=== PATIENT | male | born 1935 | race Caucasian/White ===

== ENCOUNTER 2016-06-17 12:04 | Emergency (ER) | payer MEDICARE, OTHER ==
[~2016-06-17] VITALS: Ht 167.6 cm; Wt 54.2 kg
[~2016-06-17 12:04] MED LIST: DILA8TAB4 PO; HYDR-2768 PO; HYDR-3533 PO; HYDR10SO PO; PAXI20TA26 PO; PRED50TA PO; SIMV20 PO; SYNT25TA PO
[2016-06-17 12:06] VITALS: BP 91/68; PULSE 77; RESP 16; TEMP 98; O2SAT 98
[2016-06-17 12:26] VITALS: BP 97/44; PULSE 81; RESP 18; O2SAT 96
--- NOTE | 2016-06-17 12:29 | PD ---
HPI Chief Complaint: Complaint Time Seen by Provider: 12:18 Travel History International Travel<30 days: No Contact w/Intl Traveler<30days: No Traveled to known affect area: No History of Present Illness HPI This patient complains of urinary incontinence. Duration 3 days. Symptoms severity is mild. He has no superior pain or distention. He's been wearing a depends to catch the dribbling urine. He does report history of prostate issues. He does have a urologist Dr. Dsouza. He says he called the office of his urologist yesterday and was told to come to the emergency room. No fever. No alleviating factors. 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) Blood Disorders: No Anxiety: Yes Depression: Yes Heart Rhythm Problems: No Cancer: Yes (PROSTATE) Cardiovascular Problems: Yes High Cholesterol: No Chemotherapy: No Chest Pain: Yes Congestive Heart Failure: No COPD: No Cerebrovascular Accident: No Diabetes: No Diminished Hearing: No Endocrine: Yes Gastrointestinal Disorders: Yes Glaucoma: No Genitourinary: Yes (KIDNEY STONES) Headaches: Yes Hepatitis: No Hiatal Hernia: No Hypertension: Yes Immune Disorder: No Kidney Stones: Yes ( ON CHRONIC PAIN MEDS FOR KIDNEY PAIN) Musculoskeletal: No Neurologic: No Psychiatric: No Reproductive: No Respiratory: No Migraines: No Myocardial Infarction: No Radiation Therapy: Yes Renal Failure: No Seizures: No Sickle Cell Disease: No Sleep Apnea: No Thyroid Disease: Yes (HYPO) Ulcer: No Past Surgical History Abdominal Surgery: Yes (HERNIA REPAIR X 5) AICD: No Appendectomy: Yes Cardiac Surgery: No Cholecystectomy: No Ear Surgery: No Endocrine Surgery: No Eye Surgery: No Genitourinary Surgery: No Gynecologic Surgery: No Insulin Pump: No Joint Replacement: No Oral Surgery: No Pacemaker: No Thoracic Surgery: No Other Surgery: Yes (APPENDECTOMY) Social History Alcohol Use: No Tobacco Use: Yes (1/2 PPD-1 PPD CIGARETTES) Substance Use: No Allergies-Medications (Allergen,Severity, Reaction): Coded Allergies: No Known Allergies (Verified , 06/17/16) Reported Meds & Prescriptions Reported Meds & Active Scripts Active Cipro (Ciprofloxacin HCl) 500 Mg Tab 500 Mg PO BID Reported Hydrochlorothiazide 25 Mg Tab 25 Mg PO BID Zocor (Simvastatin) 40 Mg Tab 40 Mg PO DAILY Synthroid (Levothyroxine Sodium) 25 Mcg Tab 25 Mcg PO DAILY Review of Systems General / Constitutional: No: Fever Eyes: No: Visual changes HENT: No: Headaches Cardiovascular: No: Chest Pain or Discomfort Respiratory: No: Shortness of Breath Gastrointestinal: No: Abdominal Pain Genitourinary: Positive: Dribbling, Incontinence, No: Dysuria Musculoskeletal: No: Pain Skin: No Rash Neurologic: No: Weakness Psychiatric: No: Depression Endocrine: No: Polydipsia Hematologic/Lymphatic: No: Easy Bruising Physical Exam Narrative GENERAL: Well-nourished, well-developed patient in no apparent distress. SKIN: Focused skin assessment reveals no rash and nodules. Skin is Warm and dry. HEAD: Atraumatic. Normocephalic. EYES: Pupils equal and round. No scleral icterus. No injection or drainage. ENT: No nasal bleeding or discharge. Mucous membranes pink and moist. NECK: Trachea midline. No JVD. CARDIOVASCULAR: Regular rate and rhythm. No murmur appreciated. RESPIRATORY: No accessory muscle use. Clear to auscultation. Breath sounds equal bilaterally. GASTROINTESTINAL: Abdomen soft, non-tender, nondistended. Hepatic and splenic margins not palpable. No suprapubic tenderness or distention MUSCULOSKELETAL: No obvious deformities. No clubbing. No cyanosis. No edema. NEUROLOGICAL: Awake and alert. No obvious cranial nerve deficits. Motor grossly within normal limits. Normal speech. PSYCHIATRIC: Appropriate mood and affect; insight and judgment normal. Data Data Last Documented VS Vital Signs Date Time Temp Pulse Resp B/P Pulse Ox O2 Delivery O2 Flow Rate FiO2 06/17/16 12:26 81 18 97/44 96 Room Air 06/17/16 12:06 98.0 Orders Urinalysis - C+S If Indicated (06/17/16 12:26) Urine Culture (06/17/16 12:50) Labs Laboratory Tests Test 06/17/16 12:50 Urine Collection Type CLEAN CATCH Urine Color DARK-YELLOW Urine Turbidity CLOUDY Urine pH 5.5 Urine Specific [place] 1.020 Urine Protein 300 OR GREATER mg/dL Urine Glucose (UA) NEG mg/dL Urine Ketones TRACE mg/dL Urine Occult Blood LARGE Urine Nitrite POS Urine Bilirubin NEG Urine Leukocyte Esterase MOD Urine RBC 0-3 /hpf Urine WBC 100-200 /hpf Urine WBC Clumps MOD Urine Bacteria MOD /hpf Microscopic Urinalysis Comment CULTURE INDICATED MDM Medical Decision Making Medical Screen Exam Complete: Yes Emergency Medical Condition: Yes Medical Record Reviewed: Yes Differential Diagnosis Incontinence, neurogenic bladder, urethral stricture, BPH Narrative Course I have reviewed the patient's electronic medical record. Urinalysis suggestive of infection. UTI could cause incontinence symptoms. Cipro prescribed for 5 days Patient's exam is normal Blood pressure on the low side but stable He says he frequently has low blood pressures and his blood pressure medication was stopped He should follow with his urologist Diagnosis Primary Impression: Cystitis Additional Impression: Urinary incontinence Qualified Code: R32 - Urinary incontinence, unspecified type Departure Forms: Tests/Procedures Additional Instructions: Follow-up with your Urologist Med/Other Pt SpecificInfo: Prescription(s) given Scripts Ciprofloxacin (Cipro)500 Mg [id number] Mg PO BID #10 TAB Ref 0 Prov:Jatinder Montes De Oca MD 06/17/16 Disposition: 01 DISCHARGE HOME Condition: Stable Jatinder Montes De Oca MD June 17, 2016 12:28
[2016-06-17] MEDS ORDERED: ZOCO40TA PO (12:32)
[2016-06-17] MEDS ORDERED: SYNT25TA PO (12:32)
[2016-06-17] MEDS ORDERED: HYDR25TA5 PO (12:32)
[2016-06-17 13:07] LABS: BLOOD, URINE LARGE (NEG); GLUCOSE,URINE NEG (NEG); KETONE, URINE TRACE mg/dL (NEG); PH, URINE 5.5 (5.0-8.5)
[2016-06-17 13:11] LABS: NITRITE,URINE POS (NEG)
[2016-06-17 13:12] LABS: BACTERIA, URINE MOD /hpf; COMMENT (UR) CULTURE INDICATED; CULTURE IF INDICATED CULTURE INDICATED; METHOD OF COLLECTION CLEAN CATCH; RBC, URINE 0-3 /hpf (0-3); URINE COLOR DARK-YELLOW (YELLW/STRAW); WBC, URINE 100-200 /hpf (0-5)
[2016-06-17] MEDS ORDERED: CIPR-9 PO (13:33)
[2016-06-17 14:19] VITALS: BP 100/77
== END 2016-06-17 14:20 | disposition home or self-care (01) ==
LOC: PHED 12:04
DX: N30.90 Cystitis, unspecified without hematuria (principal); B96.20 Unspecified Escherichia coli [E. coli] as the cause of diseases classified elsewhere; R32 Unspecified urinary incontinence; I10 Essential (primary) hypertension; E03.9 Hypothyroidism, unspecified; Z87.442 Personal history of urinary calculi
CPT/HCPCS: 81001; 87077; 87086; 87186; 99283

== ENCOUNTER 2016-12-27 11:26 | Inpatient (IN) | payer MEDICARE, OTHER ==
[~2016-12-27] VITALS: Ht 167.6 cm; Wt 52.5 kg
[~2016-12-27 11:26] MED LIST changes: +CIPR-9 PO; -DILA8TAB4 PO; -HYDR-2768 PO; -HYDR-3533 PO; -HYDR10SO PO; +HYDR25TA5 PO; -PAXI20TA26 PO; -PRED50TA PO; -SIMV20 PO; +ZOCO40TA PO
[2016-12-27 11:31] VITALS: BP 121/56; PULSE 98; RESP 16; TEMP 98.1; O2SAT 97
--- NOTE | 2016-12-27 12:18 | PD ---
HPI Chief Complaint: Complaint Time Seen by Provider: 11:47 Travel History International Travel<30 days: No Contact w/Intl Traveler<30days: No Traveled to known affect area: No History of Present Illness HPI 81-year-old male presents with difficulty urinating where he can only get out a small amount and feels like he has to urinate all the time. He states he has past for kidney stones over the past couple of days. He states that he takes hydrocodone at home for the pain. He denies any other complaints but is a poor historian. His friend who is with him help supplement history some. He denies other complaints. 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) Blood Disorders: No Anxiety: Yes Depression: Yes Heart Rhythm Problems: No Cancer: Yes (PROSTATE) Cardiovascular Problems: Yes High Cholesterol: No Chemotherapy: No Chest Pain: Yes Congestive Heart Failure: No COPD: No Cerebrovascular Accident: No Diabetes: No Diminished Hearing: No Endocrine: Yes Gastrointestinal Disorders: Yes Glaucoma: No Genitourinary: Yes (KIDNEY STONES) Headaches: Yes Hepatitis: No Hiatal Hernia: No Hypertension: Yes Immune Disorder: No Kidney Stones: Yes ( ON CHRONIC PAIN MEDS FOR KIDNEY PAIN) Musculoskeletal: No Neurologic: No Psychiatric: No Reproductive: No Respiratory: No Migraines: No Myocardial Infarction: No Radiation Therapy: Yes Renal Failure: No Seizures: No Sickle Cell Disease: No Sleep Apnea: No Thyroid Disease: Yes Ulcer: No Influenza Vaccination: Yes Past Surgical History Abdominal Surgery: Yes (HERNIA REPAIR X 5) AICD: No Appendectomy: Yes Cardiac Surgery: No Cholecystectomy: No Ear Surgery: No Endocrine Surgery: No Eye Surgery: No Genitourinary Surgery: No Gynecologic Surgery: No Insulin Pump: No Joint Replacement: No Oral Surgery: No Pacemaker: No Thoracic Surgery: No Other Surgery: Yes (APPENDECTOMY) Social History Alcohol Use: No Tobacco Use: Yes (1/2 PPD-1 PPD CIGARETTES) Substance Use: No Allergies-Medications (Allergen,Severity, Reaction): Coded Allergies: No Known Allergies (Verified Adverse Reaction, Unknown, 12/27/16) Reported Meds & Prescriptions Reported Meds & Active Scripts Active Reported [bp med] 1 Tab PO DAILY Hydrocodone-Acetaminophen 5-300 Mg Tab 1 Tab PO Q4H PRN Bupropion HCl ER 24 HR (Bupropion HCl) 150 Mg Tab 450 Mg PO DAILY Hydrochlorothiazide 25 Mg Tab 25 Mg PO BID Zocor (Simvastatin) 40 Mg Tab 40 Mg PO DAILY Synthroid (Levothyroxine Sodium) 25 Mcg Tab 25 Mcg PO DAILY Review of Systems Except as stated in HPI: all other systems reviewed are Neg Physical Exam Narrative GENERAL: Well-nourished, well-developed patient. SKIN: Warm and dry. HEAD: Normocephalic and atraumatic. EYES: No injection or drainage. ENT: No nasal drainage noted. NECK: Supple, trachea midline. CARDIOVASCULAR: Regular rate and rhythm RESPIRATORY: No increased effort. No accessory muscle use. GASTROINTESTINAL: Abdomen soft, non-tender, nondistended. EXTREMITIES: No edema. BACK: Nontender without obvious deformity. NEUROLOGICAL: Awake. Moves extremities. Normal speech. Data Data Last Documented VS Vital Signs Date Time Temp Pulse Resp B/P (MAP) Pulse Ox O2 Delivery O2 Flow Rate FiO2 12/27/16 11:31 98.1 98 16 121/56 (77) 97 Orders Orders Urinalysis - C+S If Indicated (12/27/16 11:36) Complete Blood Count With Diff (12/27/16 11:58) Basic Metabolic Panel (Bmp) (12/27/16 11:58) Ct Abd/Pel W/O Iv Contrast (12/27/16 ) Iv Access Insert/Monitor (12/27/16 11:58) Urine Culture (12/27/16 12:10) Consult Urology (12/27/16 ) Ceftriaxone Inj (Rocephin Inj) (12/27/16 13:30) Labs Laboratory Tests Test 12/27/16 12:10 White Blood Count 5.4 TH/MM3 Red Blood Count 3.52 MIL/MM3 Hemoglobin 9.7 GM/DL Hematocrit 30.4 % Mean Corpuscular Volume 86.5 FL Mean Corpuscular Hemoglobin 27.5 PG Mean Corpuscular Hemoglobin Concent 31.8 % Red Cell Distribution Width 15.6 % Platelet Count 324 TH/MM3 Mean Platelet Volume 6.3 FL Neutrophils (%) (Auto) 65.1 % Lymphocytes (%) (Auto) 23.8 % Monocytes (%) (Auto) 9.3 % Eosinophils (%) (Auto) 1.4 % Basophils (%) (Auto) 0.4 % Neutrophils # (Auto) 3.5 TH/MM3 Lymphocytes # (Auto) 1.3 TH/MM3 Monocytes # (Auto) 0.5 TH/MM3 Eosinophils # (Auto) 0.1 TH/MM3 Basophils # (Auto) 0.0 TH/MM3 CBC Comment DIFF FINAL Differential Comment Urine Collection Type CLEAN CATCH Urine Color YELLOW Urine Turbidity SLIGHT Urine pH 6.0 Urine Specific [place] 1.018 Urine Protein 30 mg/dL Urine Glucose (UA) NEG mg/dL Urine Ketones NEG mg/dL Urine Occult Blood LARGE Urine Nitrite NEG Urine Bilirubin NEG Urine Leukocyte Esterase SMALL Urine RBC INNUM /hpf Urine WBC 20-24 /hpf Urine Squamous Epithelial Cells 0-5 /hpf Microscopic Urinalysis Comment CULTURE INDICATED Urine Collection Time 12:10 Blood Urea Nitrogen 25 MG/DL Creatinine 1.50 MG/DL Random Glucose 102 MG/DL Calcium Level 9.0 MG/DL Sodium Level 136 MEQ/L Potassium Level 3.8 MEQ/L Chloride Level 99 MEQ/L Carbon Dioxide Level 30.7 MEQ/L Anion Gap 6 MEQ/L Estimat Glomerular Filtration Rate 45 ML/MIN MDM Medical Decision Making Medical Screen Exam Complete: Yes Emergency Medical Condition: Yes Medical Record Reviewed: Yes (past history confirmed) Interpretation(s) CBC & BMP Diagram 12/27/16 12:10 Calcium Level 9.0 Last 24 hours Impressions Abdomen/Pelvis CT 12/27/16 0000 Signed Impressions: Service Date/Time: Thursday, December 27, 2016 12:33 - CONCLUSION: 1. Bilateral nephrolithiasis. 2. Moderate left hydronephrosis 3. Multiple calculi in the distal left ureter 4. Retroperitoneal lymphadenopathy characteristic of malignant lymphadenopathy from prostate carcinoma. 5. Bilateral renal cysts. 6. Infrarenal abdominal aortic aneurysm 7. Prostatomegaly with calcium deposits in the transition zone. 8. Sclerotic and lytic bone lesions characteristic of metastatic prostate carcinoma. Serg Carrillo MD Differential Diagnosis UTI, stone, BPH Narrative Course Will check blood work, urinalysis, CT scan abdominal pelvis and reevaluate ED workup shows multiple distal left calculi with renal insufficiency and anemia. Workup also notes metastatic prostate cancer. Patient states that he knows that he has metastatic prostate cancer and he is not wanting treatment for this. In terms of finding of aortic aneurysm patient states he is not aware of this but does not want evaluation for any surgery for that likely. He does agree to discussion with urologist and admission here if needed Patient updated and agrees to admission here, given Rocephin, denies bleeding Physician Communication Physician Communication dr medrano states can eat and stay here in [place] agrees to admit and requests flomax Diagnosis Primary Impression: Calculus of distal left ureter Additional Impressions: Anemia Qualified Codes: D64.9 - Anemia, unspecified Renal insufficiency Aortic aneurysm Prostate cancer metastatic to bone Admitting Information Admitting Physician Requests: Admit Slime Jacobson MD Dec 27, 2016 12:18
[2016-12-27 12:19] LABS: AUTOMATED NEUTROPHIL # 3.5 TH/MM3 (1.8-7.7); BASOPHIL % 0.4 % (0.0-2.0); BLOOD, URINE LARGE (NEG); EOSINOPHIL # 0.1 TH/MM3 (0-0.4); EOSINOPHIL % 1.4 % (0.0-4.0); GLUCOSE,URINE NEG (NEG); HEMATOCRIT 30.4 % (39.0-51.0); HEMO FLAGS DIFF FINAL; KETONE, URINE NEG (NEG); LYMPH % 23.8 % (9.0-44.0); LYMPHOCYTE # 1.3 TH/MM3 (1.0-4.8); MEAN CELL VOLUME 86.5 FL (80.0-100.0); MEAN CORPUSCULAR HEMOGLOBIN 27.5 PG (27.0-34.0); MEAN CORPUSCULAR HGB CONC 31.8 % (32.0-36.0); MONO % 9.3 % (0.0-8.0); NEUT % 65.1 % (16.0-70.0); NITRITE,URINE NEG (NEG); PLATELET COUNT 324 TH/MM3 (150-450); RED BLOOD COUNT 3.52 MIL/MM3 (4.50-5.90); RED CELL DISTRIBUTION WIDTH 15.6 % (11.6-17.2); WHITE BLOOD COUNT 5.4 TH/MM3 (4.0-11.0)
[2016-12-27 12:27] LABS: METHOD OF COLLECTION CLEAN CATCH; POTASSIUM 3.8 MEQ/L (3.5-5.1); RBC, URINE INNUM /hpf (0-3); URINE COLOR YELLOW (YELLW/STRAW)
[2016-12-27 12:28] LABS: COMMENT (UR) CULTURE INDICATED; CULTURE IF INDICATED CULTURE INDICATED; SQUAMOUS EPITHELIAL CELL URINE 0-5 /hpf (0-5)
[2016-12-27 12:29] LABS: BICARBONATE 30.7 MEQ/L (21.0-32.0)
[2016-12-27] MEDS ORDERED: HYDR-4107 PO (12:35)
[2016-12-27] MEDS ORDERED: BUPR150T3 PO (12:35)
[2016-12-27] MEDS ORDERED: bp med PO (12:36)
--- NOTE | 2016-12-27 13:02 | RADRPT ---
EXAM DATE/TIME: 12/27/2016 12:33 [facility] COMPARISON: No previous studies available for comparison. INDICATIONS : Bladder pain, pressure, burning, difficulty urinating. ORAL CONTRAST: No oral contrast ingested. RADIATION DOSE: 4.92 CTDIvol (mGy) MEDICAL HISTORY : Cardiovascular disease. Renal calculi. Carcinoma, prostate.Black outs, SOB. SURGICAL HISTORY : Knee, Hernia x 5 ENCOUNTER: Initial ACUITY: 4 - 6 days PAIN SCALE: 10/10 LOCATION: pelvis TECHNIQUE: Volumetric scanning of the abdomen and pelvis was performed. Using automated exposure control and ad justment of the mA and/or kV according to patient size, radiation dose was kept as low as reasonably achievable to obtain optimal diagnostic quality images. DICOM format image data is available electro nically for review and comparison. FINDINGS: LOWER LUNGS: The visualized lower lungs are clear. LIVER: Homogeneous density without lesion. There is no dilation of the biliary tree. No calcified gallston es. SPLEEN: Normal size without lesion. PANCREAS: Within normal limits. KIDNEYS: The left kidney is moderately hydronephrotic. Multiple renal calculi identified ranging in size up to 6 mm. The largest stone is identified in the lower pole of left kidney. Numerous calculi are identif ied in the distal left ureter. The largest measures 6 mm. Large bilobed cyst is identified off the in ferior pole of the left kidney measuring 4.3 cm. There is no evidence of right hydronephrosis. A 5.6 mm calculus is identified in the lower pole of the right kidney. A cluster of 3 large cysts are seen centrally within the right kidney. These ran ge in size up to 3 cm. ADRENAL GLANDS: Within normal limits. VASCULAR: Aneurysmal enlargement is identified of the infrarenal abdominal aorta. There are 2 aneurysmal segmen ts. One just below the renal arteries measuring 3.9 cm and the second just above the bifurcation teddy uring 3.6 cm. 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 BOWEL/MESENTERY: The stomach, small bowel, and colon demonstrate no acute abnormality. There is no free intraperitone al air or fluid. ABDOMINAL WALL: Within normal limits. RETROPERITONEUM: Enlarged retroperitoneal lymph nodes are identified. A ranging in size up to 2.5 cm. BLADDER: A large calculus is identified along the posterior bladder wall at the level of the prostate. This ma y represent calcification within a BPH nodule. REPRODUCTIVE: Within normal limits. INGUINAL: There is no lymphadenopathy or hernia. MUSCULOSKELETAL: Radiolucent and sclerotic lesions are identified throughout the pelvis. CONCLUSION: 1. Bilateral nephrolithiasis. 2. Moderate left hydronephrosis 3. Multiple calculi in the distal left ureter 4. Retroperitoneal lymphadenopathy characteristic of malignant lymphadenopathy from prostate carcinom a. 5. Bilateral renal cysts. 6. Infrarenal abdominal aortic aneurysm 7. Prostatomegaly with calcium deposits in the transition zone. 8. Sclerotic and lytic bone lesions characteristic of metastatic prostate carcinoma. Serg Carrillo MD on December 27, 2016 at 12:48 Board Certified Radiologist. This report was verified electronically.
[2016-12-27 13:10] VITALS: BP 119/72; PULSE 79; RESP 18; O2SAT 96
[2016-12-27] MEDS ORDERED: cefTRIAXone INJ 1,000 MG in SODIUM CHLORIDE 0.9% INJ 100 ML IV ONE (13:30)
[2016-12-27] MEDS ORDERED: SODIUM CHLOR 0.9% 1000 ML INJ 1,000 ML IV ONE (14:00)
[2016-12-27] MEDS ORDERED: TAMSULOSIN HCL 0.4 MG CAP PO ONE ×2 (14:15→15:30)
[2016-12-27 14:49] VITALS: BP 117/71
[2016-12-27 15:00] VITALS: BP 126/60; PULSE 78; RESP 18; TEMP 97.4; O2SAT 96
[2016-12-27] MEDS ORDERED: buPROPion HCL 150 MG EXTENDED RELEASE TAB PO SCH (16:00)
--- NOTE | 2016-12-27 16:24 | HHI.HP ---
[facility] Ad[facility] Diagnosis distal left ureteral calculi, renal insufficiency, anemia Diagnoses: Chief Complaint: Difficulty urinating, abdominal pain Travel History International Travel<30 Days: No Contact w/Intl Traveler <30 Da: No Traveled to Known Affected Are: No History of Present Illness 81-year-old white male being admitted for hydronephrosis and urinary retention. Patient was in his usual state of health until about 2 days ago when he began experiencing suprapubic pain and difficulty urinating. He is a very difficult historian, eventually says he does not remember seeing gross blood in his urine. His friend says that he passed 2 kidney stones in the last few days and then began experiencing his current pain symptoms. Denies any dysuria. Denies any nausea vomiting or diarrhea. States that he has a urologist and he was recommended to see oncology and undergo chemotherapy by the MD for his prostate cancer but he declined that treatment option. Review of Systems Except as stated in HPI: all other systems reviewed are Neg Past Family Social History Past Medical History Obtained via chart, prostate cancer, nephrolithiasis, depression Past Surgical History Abdominal hernia repair, appendectomy Allergies: Coded Allergies: No Known Allergies (Verified Allergy, Unknown, 12/27/16) Family History Denies any family illnesses Social History Smoker half pack to 1 pack per day Physical Exam Vital Signs Vital Signs Date Time Temp Pulse Resp B/P (MAP) Pulse Ox O2 Delivery O2 Flow Rate FiO2 12/27/16 15:00 97.4 78 18 126/60 (82) 96 12/27/16 14:49 18 85 117/71 (86) 12/27/16 11:31 98.1 98 16 121/56 (77) 97 Physical Exam VS: Afebrile GENERAL: Elderly white male, sitting up in bed, no acute distress SKIN: Warm and dry. EYES: No scleral icterus. No injection or drainage. ENT: No nasal bleeding or discharge. Mucous membranes pink and moist. CARDIOVASCULAR: Regular rate and rhythm. no murmurs RESPIRATORY: No accessory muscle use. Clear to auscultation. Breath sounds equal bilaterally. GASTROINTESTINAL: Abdomen soft, non-tender, nondistended. Hepatic and splenic margins not palpable. Extremities: No clubbing, cyanosis, or edema. No obvious deformities. Genitourinary: Has a palpable left-sided inguinal lymph node, nontender testicles, circum sized penis - no erythema or edema noted over entire groin. Has left flank tenderness to palpation, none on the right. MUSCULOSKELETAL: Extremities without clubbing, cyanosis, or edema. No obvious deformities. grossly intact ROM with 5/5 strength in upper and lower extremities proximally NEUROLOGICAL: Awake and alert. No obvious cranial nerve deficits. No facial droop nor slurred speech noted. PSYCHIATRIC: Appropriate mood and affect; insight and judgment normal. Laboratory Laboratory Tests Test 12/27/16 12:10 White Blood Count 5.4 Red Blood Count 3.52 Hemoglobin 9.7 Hematocrit 30.4 Mean Corpuscular Volume 86.5 Mean Corpuscular Hemoglobin 27.5 Mean Corpuscular Hemoglobin Concent 31.8 Red Cell Distribution Width 15.6 Platelet Count 324 Mean Platelet Volume 6.3 Neutrophils (%) (Auto) 65.1 Lymphocytes (%) (Auto) 23.8 Monocytes (%) (Auto) 9.3 Eosinophils (%) (Auto) 1.4 Basophils (%) (Auto) 0.4 Neutrophils # (Auto) 3.5 Lymphocytes # (Auto) 1.3 Monocytes # (Auto) 0.5 Eosinophils # (Auto) 0.1 Basophils # (Auto) 0.0 CBC Comment DIFF FINAL Differential Comment Urine Collection Type CLEAN CATCH Urine Color YELLOW Urine Turbidity SLIGHT Urine pH 6.0 Urine Specific [place] 1.018 Urine Protein 30 Urine Glucose (UA) NEG Urine Ketones NEG Urine Occult Blood LARGE Urine Nitrite NEG Urine Bilirubin NEG Urine Leukocyte Esterase SMALL Urine RBC INNUM Urine WBC 20-24 Urine Squamous Epithelial Cells 0-5 Microscopic Urinalysis Comment CULTURE INDICATED Urine Collection Time 12:10 Blood Urea Nitrogen 25 Creatinine 1.50 Random Glucose 102 Calcium Level 9.0 Sodium Level 136 Potassium Level 3.8 Chloride Level 99 Carbon Dioxide Level 30.7 Anion Gap 6 Estimat Glomerular Filtration Rate 45 Date/Time Source Procedure Growth Status 12/27/16 12:10 Urine Clean Catch Urine Culture Pending Received Result Diagram: 12/27/16 1210 12/27/16 1210 Caprini VTE Risk Assessment Caprini VTE Risk Assessment: Mod/High Risk (score >= 2) Caprini Risk Assessment Model Point Value = 1 Point Value = 2 Point Value = 3 Point Value = 5 Age 41-60 Minor surgery BMI > 25 kg/m2 Swollen legs Varicose veins or History of unexplained or recurrent spontaneous Oral contraceptives or hormone replacement Sepsis (< 1 month) Serious lung disease, including pneumonia (< 1 month) Abnormal pulmonary function Acute myocardial infarction Congestive heart failure (< 1 month) History of inflammatory bowel disease Medical patient at bed rest Age 61-74 Arthroscopic surgery Major open surgery (> 45 min) Laparoscopic surgery (> 45 min) Malignancy Confined to bed (> 72 hours) Immobilizing plaster cast Central venous access Age >= 75 History of VTE Family history of VTE Factor V Leiden Prothrombin [id number] Lupus anticoagulant Anticardiolipin antibodies Elevated serum homocysteine Heparin-induced thrombocytopenia Other congenital or acquired thrombophilia Stroke (< 1 month) Elective arthroplasty Hip, pelvis, or leg fracture Acute spinal cord injury (< 1 month) Prophylaxis Regimen Total Risk Factor Score Risk Level Prophylaxis Regimen 0-1 Low Early ambulation 2 Moderate Order ONE of the following: *Sequential Compression Device (SCD) *Heparin 5000 units SQ BID 3-4 Higher Order ONE of the following medications: *Heparin 5000 units SQ TID *Enoxaparin/Lovenox 40 mg SQ daily (WT < 150 kg, CrCl > 30 mL/min) *Enoxaparin/Lovenox 30 mg SQ daily (WT < 150 kg, CrCl > 10-29 mL/min) *Enoxaparin/Lovenox 30 mg SQ BID (WT < 150 kg, CrCl > 30 mL/min) AND/OR *Sequential Compression Device (SCD) 5 or more Highest Order ONE of the following medications: *Heparin 5000 units SQ TID (Preferred with Epidurals) *Enoxaparin/Lovenox 40 mg SQ daily (WT < 150 kg, CrCl > 30 mL/min) *Enoxaparin/Lovenox 30 mg SQ daily (WT < 150 kg, CrCl > 10-29 mL/min) *Enoxaparin/Lovenox 30 mg SQ BID (WT < 150 kg, CrCl > 30 mL/min) AND *Sequential Compression Device (SCD) Assessment and Plan Assessment and Plan abdominal pain - Likely multifactorial, independent reviewed the CT scan shows substantial constipation diffusely along with substantial aortic calcifications. - Radiology read shows infrarenal abdominal aortic aneurysm along with kidney stones, largest on the left at most measuring 6 mm - home hydrocodone and Toradol, - see tx as below Left-sided hydronephrosis + nephrolithiasis - Likely secondary to nephrolithiasis, largest on the left at most measuring 6 mm, ED MD relayed that urology fundraising consultant does not feel the need for stenting at this time. - IV Hydration - Strict intake and output - Glycerin suppository x1, scheduled MiraLAX, Colace Prostate carcinoma w/ presumed mets - pt not desiring further input from heme/onc at this time despite being counseled on risks and benefits Urinary straining - Avoid anticholinergics, strict intake output - Likely secondary to BPH with prostate cancer, starting max dose Flomax - Can perform and out catheterizations if starts presenting with absolute urinary retention - Continue Rocephin until urine culture proves there is no UTI DAWN - Likely secondary to decreased appetite secondary to pain - IV hydration HYL, hypothyroidism, depression - continue home simvastatin, bupriopion, and synthroid Lovenox for DVT prevention Plan briefly discussed w/ nurse. Physician Certification 2 Midnight Certification Type: Admission for Inpatient Services Order for Inpatient Services The services are ordered in accordance with Medicare regulations or non- Medicare payer requirements, as applicable. In the case of services not specified as inpatient-only, they are appropriately provided as inpatient services in accordance with the 2-midnight benchmark. Estimated LOS (days): 2 2 days is the estimated time the patient will need to remain in the hospital, assuming treatment plan goals are met and no additional complications. Post-Hospital Plan: Home Isaiah Soto MD Dec 27, 2016 16:24
[2016-12-27] MEDS: LEVOTHYROXINE SODIUM 25 MCG TAB PO SCH (16:42)
[2016-12-27] MEDS: PRAVASTATIN SOD 80 MG TAB PO SCH (16:42)
[2016-12-27] MEDS ORDERED: KETOROLAC TROMETHAMINE 30 MG/ML (IVP) VIAL IV PUSH PRN (16:45)
[2016-12-27] MEDS ORDERED: ACETAMINOPHEN 500 MG CPLT PO PRN (16:45)
[2016-12-27] MEDS: SODIUM CHLOR 0.9% 1000 ML INJ 1,000 ML IV SCH (16:50)
[2016-12-27] MEDS ORDERED: ACETAMINOPHEN/HYDROcodone 325 MG/5 MG TAB PO PRN (17:00)
[2016-12-27] MEDS ORDERED: ENOXAPARIN SODIUM 30 MG/0.3 ML SYRINGE SQ SCH (18:00)
[2016-12-27 20:00] VITALS: BP 88/56; PULSE 90; RESP 18; TEMP 99.1; O2SAT 98
[2016-12-27] MEDS: buPROPion HCL 100 MG SUSTAINED RELEASE TAB PO SCH (21:07)
[2016-12-27] MEDS ORDERED: TEMAZEPAM 7.5 MG CAP PO ONE (23:30)
[2016-12-28] VITALS: BP 112/58; PULSE 70; RESP 16; TEMP 98.1; O2SAT 99
[2016-12-28] MEDS: SODIUM CHLOR 0.9% 1000 ML INJ 1,000 ML IV SCH ×2 (03:15→15:29)
[2016-12-28] MEDS: LEVOTHYROXINE SODIUM 25 MCG TAB PO SCH (04:49)
[2016-12-28 07:21] LABS: POTASSIUM 3.5 MEQ/L (3.5-5.1)
[2016-12-28 07:27] LABS: BICARBONATE 27.1 MEQ/L (21.0-32.0)
[2016-12-28 08:00] VITALS: BP 136/63; PULSE 80; RESP 14; TEMP 96.5; O2SAT 97
[2016-12-28] MEDS: PRAVASTATIN SOD 80 MG TAB PO SCH (08:19)
[2016-12-28] MEDS: buPROPion HCL 100 MG SUSTAINED RELEASE TAB PO SCH (08:19)
[2016-12-28] MEDS ORDERED: TAMSULOSIN HCL 0.4 MG CAP PO SCH (09:00)
[2016-12-28] MEDS ORDERED: cefTRIAXone INJ 1,000 MG in SODIUM CHLORIDE 0.9% INJ 100 ML IV SCH (10:00)
--- NOTE | 2016-12-28 11:24 | RADRPT ---
EXAM DATE/TIME: 12/28/2016 10:54 [place] COMPARISON: CT ABDOMEN & PELVIS W/O CONTRAST, December 27, 2016, 12:33. INDICATIONS : Bilateral flank pain MEDICAL HISTORY : Carcinoma, prostatic. Renal calculi. Cardiovascular disease. SURGICAL HISTORY : Hernia, knee ENCOUNTER: Subsequent ACUITY: 2 weeks PAIN SCORE: 6/10 LOCATION: Bilateral lower quadrant bilateral flank pain FINDINGS: Supine view of the abdomen was performed. The abdominal bowel gas pattern is unremarkable. There is no evidence of ileus, free air or mass effect. Distal left ureteral calcifications are faintly visual ized. No abnormal masses, or organomegaly is seen. No sclerotic lesions are inconspicuous. CONCLUSION: 1. Faintly visualized a distal left ureteral calcifications. 2. No evidence of ileus, mass effect or free air. Serg Carrillo MD on December 28, 2016 at 11:19 Board Certified Radiologist. This report was verified electronically.
[2016-12-28 12:00] VITALS: BP 107/55; PULSE 83; RESP 16; TEMP 97.8; O2SAT 100
--- NOTE | 2016-12-28 14:36 | MB ---
cc: SILVANA HATCH MD DATE OF CONSULTATION: 12/28/2016. REASON FOR CONSULTATION: 1. Left ureteral calculi. 2. History of metastatic prostate cancer. HISTORY OF PRESENT ILLNESS: This patient is an 81-year-old male with a history of prostate cancer status post external beam radiation therapy with metastatic disease, longstanding history of kidney stones who presented yesterday to the emergency room with a two day history of lower abdominal pain and pain with urination. The patient states he has been dealing with kidney stones since the 's for which he has had multiple lithotripsies in the past. He states he has passed four kidney stones over the past week. Yesterday he did not feel like he was emptying his bladder well. He denies fever or chills, nausea or vomiting or flank pain. He is under the care of a urologist at the [facility] who recommended going to see oncology for possible chemotherapy for his metastatic prostate cancer but he declined this treatment option. He denies any unexplained weight loss or any new or unusual bone or back pain. He denies bowel incontinence however he does have trouble controlling his urine and often cannot without leaking. REVIEW OF SYSTEMS: See the history of present illness, otherwise all systems reviewed and otherwise negative. PAST MEDICAL HISTORY: 1. Nephrolithiasis. 2. Metastatic prostate cancer. 3. Depression. PAST SURGICAL HISTORY: 1. Appendectomy. 2. Abdominal hernia repair. ALLERGIES: NO KNOWN DRUG ALLERGIES. FAMILY HISTORY: He denies urolithiasis. SOCIAL HISTORY: He smokes one pack per day. He denies illicit drugs. Occasional alcohol use. HOME MEDICATIONS: His home medications include: 1. Zocor 40 milligrams p.o. daily. 2. Wellbutrin 450 milligrams p.o. daily. 3. Hydrochlorothiazide 25 milligrams p.o. twice a day. 4. Synthroid 25 milligrams p.o. daily. REVIEW OF SYSTEMS: See the history of present illness, otherwise all systems reviewed and otherwise negative. PHYSICAL EXAMINATION: VITAL SIGNS: Temperature 96.5, pulse 80, respiratory rate 14, blood pressure 136/69, satting 97% on room air. GENERAL: He is alert and oriented times three and in no apparent distress. He is a pleasant and cooperative gentleman who appears older than his stated age. HEAD, EYES, EARS, NOSE, THROAT: Head is normocephalic and atraumatic. Eyes - No scleral icterus. Extraocular muscles intact. NECK: The neck is supple. Trachea is midline. No jugular venous distention. SKIN: No ulcers or rashes seen. Mucosa pink and moist. LUNGS: Nonlabored respirations. No wheezes, rales or rhonchi. HEART: Regular rate and rhythm. No murmurs, rubs or gallops. ABDOMEN: The abdomen is soft, nontender and nondistended. Positive bowel sounds. GENITOURINARY EXAM: His penis is uncircumcised. Testes descended bilaterally of normal size and consistency without masses. RECTAL EXAM: Not indicated at this time. EXTREMITIES: Nontender. No cyanosis, clubbing or edema. PSYCHIATRIC: Flat affect. NEUROLOGIC: Cranial nerves II through XII are intact. Strength 5/5 in all four extremities. LABORATORY STUDIES: White count 5.4, hemoglobin 11.7, hematocrit 30.4, platelet count 324,000. Sodium 139, potassium 3.5, chloride 105, bicarbonate 27.1, BUN 26, creatinine 1..30. Urine shows large blood as well as leukocyte esterase. IMAGING STUDIES: CT of pelvis without contrast images were reviewed and agree with radiologist's report. 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 ASSESSMENT AND PLAN: The patient is an 81-year-old male with metastatic prostate cancer, history of kidney stones who was admitted with lower abdominal pain and difficulty urinating and was found to have multiple left distal ureteral calculi. PLAN: 1. Will go ahead and check a KUB. 2. Will also check a postvoid residual to be certain that he is emptying his bladder well. 3. Recommend conservative management at this time with Flomax and pain medication such as Diclofenac. 4. The patient wants a trial passage of the stones. 5. He can follow up with myself or with the [facility] as an outpatient for treatment of stones and to discuss further options for treatment of his prostate cancer as there other options available besides chemotherapy such as LH/RH agonists and antagonist therapy as well as possible Zytiga if the patient is interested. 6. I would hold off on checking PSA while he is in the hospital and it can be checked as an outpatient. Thank you for this consult. Please call with any questions. MD BARBIE Damon/CARLOS /11:00 AM /2:22 PM
[2016-12-28] MEDS ORDERED: OXYC1CAP PO (16:44)
[2016-12-28] MEDS ORDERED: IBUP-1129 OROPHARYNG (16:44)
[2016-12-28] MEDS ORDERED: TAMS0.4C4 PO (16:44)
[2016-12-28] MEDS ORDERED: CEFD300C PO (16:44)
[2016-12-28] MEDS ORDERED: FINA5TAB2 PO (16:44)
[2016-12-28] MEDS ORDERED: TRAZ50TA12 PO (16:45)
--- NOTE | 2016-12-28 16:45 | HHI.DCPOC ---
Discharge Care Plan Diagnosis: (1) Calculus of distal left ureter (2) Prostate cancer metastatic to bone (3) Renal insufficiency Additional Problems Drink 8-10 glasses of water a day with at least half lemon's worth of lemon juice in your daily water intake. Goals to Promote Your Health * To prevent worsening of your condition and complications * To maintain your health at the optimal level Directions to Meet Your Goals Take your medications as prescribed Follow your dietary instruction Follow activity as directed Keep your appointments as scheduled Take your immunizations and boosters as scheduled If your symptoms worsen call your PCP, if no PCP go to Urgent Care Center or Emergency Room Smoking is Dangerous to Your Health. Avoid second hand smoke Call the 24-hour hour crisis hotline for domestic abuse at Isaiah Soto MD Dec 28, 2016 16:45
--- NOTE | 2016-12-28 16:48 | HHI.PR ---
Subjective Remarks Patient reports mildly improved symptoms, has been able to urinate per nursing with post-residual voids ranging from 60 to 70s. Not requiring catheterizations. Patient tolerating by mouth intake and no IV narcotics. Objective Vital Signs Date Time Temp Pulse Resp B/P (MAP) Pulse Ox O2 Delivery O2 Flow Rate FiO2 12/28/16 12:00 97.8 83 16 107/55 (72) 100 12/28/16 08:00 96.5 80 14 136/63 (87) 97 12/28/16 00:00 98.1 70 16 112/58 (76) 99 12/27/16 20:00 99.1 90 18 88/56 (67) 98 12/27/16 18:15 15 I/O 12/27/16 12/27/16 12/27/16 12/28/16 12/28/16 12/28/16 07:00 15:00 23:00 07:00 15:00 23:00 Intake Total 100 ml 1240 ml 1480 ml 444 ml Output Total 50 ml 100 ml 200 ml 200 ml 50 ml Balance 50 ml 1140 ml 1280 ml 244 ml -50 ml Intake Oral 240 ml 480 ml 444 ml IV Total 100 ml 1000 ml 1000 ml Output Urine Total 50 ml 100 ml 200 ml 200 ml 50 ml Bladder Scan Volume Amount 71 ml 64 ml # Voids 2 2 1 # Bowel Movements 0 Result Diagram: 12/27/16 1210 12/28/16 0702 Objective Remarks No flank tenderness appreciated bilaterally No acute distress, sitting, awake, alert A/P Assessment and Plan Case discussed with urology, patient can be discharged home pain control. Patient requiring IV pain medication so I will discharge him on oral anti- inflammatories as well as only as needed narcotic. Patient was counseled extensively to avoid his previous regimen of hydrocodone and only uses oxycodone as needed for severe pain not relieved by Motrin. Counseled patient to aggressively hydrate himself. He will be discharged on max dose Flomax as well as a starting dose of finasteride. He was instructed to follow-up with his urologist as an outpatient and informed that if his symptoms significantly worsened as opposed to improving to return to the emergency room. Patient has met maximal benefit from hospitalization and is clinically stable for discharge. Over 30 minutes spent in the care and discharge of this patient. Isaiah Soto MD Dec 28, 2016 16:48
[2016-12-28] MEDS ORDERED: traZODone HCL 50 MG TAB PO SCH (21:00)
== END 2016-12-28 17:54 | disposition home or self-care (01) | DRG 694 ==
LOC: PHED 11:26 → PHEDA 13:34 → PH3B 14:40
PROVIDERS: ADMIT Hospitalist; ATTEND Hospitalist
DX: N13.2 Hydronephrosis with renal and ureteral calculous obstruction (principal); N17.9 Acute kidney failure, unspecified; C79.51 Secondary malignant neoplasm of bone; C61 Malignant neoplasm of prostate; D64.9 Anemia, unspecified; I10 Essential (primary) hypertension; F32.9 Major depressive disorder, single episode, unspecified; E03.9 Hypothyroidism, unspecified; F17.210 Nicotine dependence, cigarettes, uncomplicated; I71.4 Abdominal aortic aneurysm, without rupture; K59.00 Constipation, unspecified; R33.9 Retention of urine, unspecified; N40.0 Benign prostatic hyperplasia without lower urinary tract symptoms; N28.1 Cyst of kidney, acquired; Z92.3 Personal history of irradiation
CPT/HCPCS: 74000; 74176; 80048; 81001; 85025; 87086; J0696; J1650; J1885; J7030